=== PATIENT | male | born 1965 | race Native Hawaiian/Other Pacific Islander ===

== ENCOUNTER 2021-03-01 09:08 | Emergency (ER) | payer OTHER ==
[~2021-03-01] VITALS: Ht 172.7 cm; Wt 95.3 kg
[2021-03-01 10:45] VITALS: BP 150/95
== END 2021-03-01 10:45 | disposition home or self-care (01) ==
LOC: ER 09:08
DX: M54.5 Low back pain (principal); M54.2 Cervicalgia; V09.9XXA Pedestrian injured in unspecified transport accident, initial encounter; Y93.89 Activity, other specified; Y92.512 Supermarket, store or market as the place of occurrence of the external cause; Y99.8 Other external cause status